=== PATIENT | female | born 1965 | race Caucasian/White ===

== ENCOUNTER 2024-04-21 15:36 | Outpatient (RCR) | payer BC, SELFPAY | END 2024-07-07 13:01 | disposition home or self-care (01) | PROVIDERS: PCP Internal Medicine; Visit Provider Orthopaedic Surgery | DX: M17.12 Unilateral primary osteoarthritis, left knee (principal); Z96.652 Presence of left artificial knee joint; Z51.89 Encounter for other specified aftercare | CPT/HCPCS: 97161 ==

== ENCOUNTER 2024-05-05 07:04 | Day surgery (SDC) | payer BC, SELFPAY ==
[2024-05-05] VITALS (25 sets, daily range): BP systolic 86–161; BP diastolic 47–80; PULSE 58–97; RESP 12–20; TEMP 35.6–36.6; O2SAT 93–99; BMI 52.4
[2024-05-05] MEDS: OXYCODONE (CR) 10 MG TAB.ER.12H PO (07:20)
[2024-05-05] MEDS: ACETAMINOPHEN 500 MG TABLET 1000 MG PO ×3 (07:20→20:08)
[2024-05-05] MEDS: CELECOXIB 200 MG CAPSULE PO (07:20)
[2024-05-05] MEDS: SODIUM CHLORIDE 0.9 % (FLUSH) 10 ML SYRINGE IVF (07:25)
[2024-05-05] MEDS: LACTATED RINGERS 1000 ML 1,000 ML 100 ML IV (08:55)
[2024-05-05] MEDS: MIDAZOLAM HCL 1 MG/ML inj IVP (09:10)
[2024-05-05] MEDS: fentaNYL 100 MCG/2 ML inj IVP (09:10)
--- NOTE | 2024-05-05 09:17 | SUR.PREOP ---
TIME?OUT:?3110 PT/Ehsan DELEON RN/Afshan VERDUGO MDA?VERIFICATION?OF?SURGICAL?SITE,?PROCEDURE,?AND?CONSENT OBTAINED?PRIOR?TO?INVASIVE?PROCEDURE.
[2024-05-05] MEDS: TRANEXAMIC ACID 100 MG/ML INJ 1000 MG IV (09:40)
[2024-05-05] MEDS: CEFAZOLIN 1 GM inj 3 GM IVP (09:45)
--- NOTE | 2024-05-05 09:56 | W.ANESCHARGE ---
Anesthesia Charges Start Date/Time Anesthesia Start Date: 05/05/24 Anesthesia Start Time: 09:21 Stop Date/Time Anesthesia Stop Date: 05/05/24 Anesthesia Stop Time: 12:12
--- NOTE | 2024-05-05 09:56 | W.PM.NB ---
Nerve Block Nerve Block Time Seen by Provider: 09:13 Date Seen: 05/05/24 Type of block requested by surgeon for post-operative analgesia: femoral Side: left Time out performed: Yes Verification of patient name: Yes Verification of date of : Yes Site marking: site marked Name of person performing procedure: Demetris Continuous monitoring Was continuous monitoring of O2 sat, B/P, alarm security or surveillance monitor, recorded every 15 minutes?: Yes Procedure Checklist: sterile prep, needles and gloves Ultrasound guided. Images saved: Yes Medications given in 5ml increments after negative aspiration: Marcaine %: 0.25 mL: 15 Needle gauge: 20 Precedex (mcg): 25 Patient tolerated procedure well: Yes Block Charges Block Charge (with Pro Fee): Femoral Nerve Use of Ultrasound Machine for Block: Yes- US Guidance/pain block
--- NOTE | 2024-05-05 09:56 | W.PM.NB ---
Nerve Block Nerve Block Time Seen by Provider: 09:13 Date Seen: 05/05/24 Type of block requested by surgeon for post-operative analgesia: geniculars Side: left Time out performed: Yes Verification of patient name: Yes Verification of date of : Yes Site marking: site marked Name of person performing procedure: Demetris Continuous monitoring Was continuous monitoring of O2 sat, B/P, assistant professor of religion, recorded every 15 minutes?: Yes Procedure Checklist: sterile prep, needles and gloves Medications given in 5ml increments after negative aspiration: Ropivicaine %: 0.5 mL: 9 Needle gauge: 25 Patient tolerated procedure well: Yes Block Charges Block Charge (with Pro Fee): Genicular Nerve Block Use of Ultrasound Machine for Block: No
--- NOTE | 2024-05-05 11:31 | CRLHL7_ITS ---
For Patients: As a result of the Cures Act, medical imaging exams and procedure reports are released immediately into your electronic medical record. You may view this report before your referring provider. If you have questions, please contact your health care provider. Indication: Total knee arthroplasty Technique: Two views of the left knee Comparison: Left knee radiographs 02/26/2024 Findings/impression : Interval postsurgical changes of left knee arthroplasty. The hardware is intact and without adjacent lucency. There is no acute fracture, dislocation or suspicious bony lesion. Air is present within the soft tissues compatible with very recent surgery. There are no soft tissue radiopaque foreign bodies. Dictated by Иван Leon MD @ 05/07/2024 2:25:50 PM (Electronically Signed)
--- NOTE | 2024-05-05 11:36 | PM.ORPRC ---
Procedure Note Date of procedure: 05/05/24 Procedure: PREOPERATIVE DIAGNOSIS: Left knee osteoarthritis, history of left knee patellofemoral arthroplasty POSTOPERATIVE DIAGNOSIS: Left knee osteoarthritis, history of left knee patellofemoral arthroplasty NAME OF OPERATION: Revision Left total knee arthroplasty SURGEON: Nikolay May MD LABOR AND DELIVERY REGISTERED NURSE: MARIELA Will ANESTHESIA: Spinal ESTIMATED BLOOD LOSS: 0 mL COMPLICATIONS: None SPECIMENS: None DRAINS: None PREOPERATIVE ANTIBIOTICS: Ancef 3 grams, antibiotic impregnated cement IMPLANTS: 1. J&J Attune revision CRS #6 posterior stabilized femur, with a 14 mm x 50 mm cemented stem 2. #6 revision CRS fixed-bearing tibia, with a 14 mm x 50 mm cemented stem 3. #6 posterior stabilized, 5 mm fixed-bearing polyethylene 4. 38 patella INDICATIONS: The patient is a 58-year-old with a longstanding history of severe, unrelenting left knee pain secondary to end-stage (grade IV) left knee osteoarthritis. She has previously undergone patellofemoral arthroplasty. Despite appropriate nonoperative management, including activity modification, anti-inflammatories, [id number] pain medication, bracing, physical therapy, and injections they continue to have pain and disability. Operative intervention was offered. The risks, benefits and expected outcomes were discussed in detail. These included but were not limited to: Infection, bleeding, injury to blood vessel or nerve, venous thromboembolism. All questions were answered to their satisfaction. Use of an preschool teacher assistant was necessary throughout the case for patient positioning and safety, soft tissue retraction, and closure. A modifier 22 should be added to this case. With the patient's history of previous surgery, body weight of 150 kg and a BMI of 53 kg the exposure was quite difficult. Because of the extreme obesity, stems were used to reduce the risk of aseptic loosening. These factors added time and cost to complete the case. PROCEDURE: Spinal anesthesia was administered. The patient was placed supine on the operating table. The preschool teacher assistant made sure the patient was positioned appropriately. The lower extremity was prepped and draped in the usual sterile fashion. The limb was exsanguinated with the Bola bandage. The pneumatic tourniquet was inflated to 300 mmHg. The previously placed anterior incision was utilized with the knee in flexion. Subcutaneous dissection was sharply taken through fascial layer #1. Full-thickness medial and lateral flaps were elevated. The preschool teacher assistant retracted the soft tissues and protected them throughout the case. A standard subvastus approach was made. The patella was subluxed. The infrapatellar fat pad was debrided. The menisci and cruciate ligaments were sharply d?brided. Marginal osteophytes were d?brided with the rongeur. The femoral component of the patellofemoral arthroplasty was de bonded from the femur with the oscillating saw under the component both medially and laterally. We then tapped the component off. This did not result in any significant bone loss. The drill was used to penetrate the femoral canal. The canal was aspirated and irrigated with pulse lavage. The intramedullary femoral guide was placed for a 5-degree valgus cut, removing 10 mm off the distal femur. The saw was used to make the cut. Whitesides line and the trans epicondylar axis were marked. The femoral sizing guide was pinned onto the distal femur. Three degrees of external rotation nicely parallels the transepicondylar axis. Pins were placed for posterior referencing. The four-in-one cutting guide was pinned onto the distal femur. The anterior, posterior, and chamfer cuts were made. The preschool teacher assistant protected the collateral ligaments. The revision trial was placed. The box cuts were made. The drill was used x2. The stemmed, boxed trial was placed and was an excellent fit. Attention was then turned to the proximal tibia. The extramedullary tibial guide was placed for a neutral varus/valgus cut with 5 degrees of posterior slope, removing 2 mm based off the medial tibial surface. The preschool teacher assistant protected the collateral ligaments and the neurovascular bundle. The saw was used to make the cut. Trial components were placed. The knee was nicely balanced in both flexion and extension. The trial components were removed. The tray was placed in appropriate rotation, parallel to our tibial cutting pins. It was pinned by the preschool teacher assistant and the drill x2 was used. The stemmed tibial trial was placed. The punch was used. The tray was removed. The punch was used again. Attention was then turned to the patella. For the scar surrounding the patellar component was aggressively debrided. We then used the oscillating saw to remove the patellar component. The cut was revised to a [place] patellar thickness of 12 mm. The polyethylene pegs were drilled out and removed with the curette. Drill holes were made by the preschool teacher assistant. The trial was placed and was an excellent fit. Cancellous surfaces were irrigated with pulse lavage and thoroughly dried by the preschool teacher assistant. We cemented the tibial component, then the femoral component. We impacted the 5 mm polyethylene onto the tibial tray. The knee was brought into full extension. We then cemented the patellar component. Excessive cement was removed. The cement was allowed to harden. The knee was taken through a range of motion and was found to be nicely balanced in both flexion and extension. The patella tracks centrally. The preschool teacher assistant did a three minute dilute Betadine solution soak. The preschool teacher assistant irrigated the wound with 3 liters of normal saline via pulse lavage. The preschool teacher assistant reapproximated the extensor mechanism with #1 Vicryl in an interrupted [id number] fashion. The preschool teacher assistant then ran the extensor mechanism with a #1 PDO Stratafix. The preschool teacher assistant closed the subcutaneous tissues with a 3-0 Stratafix and the skin with a running 3-0 Stratafix in a subcuticular fashion. Glue was used to seal the skin. The preschool teacher assistant placed a dry dressing. Sponge and needle counts were correct x2. The patient tolerated the procedure well. There were no apparent complications. They were carefully transferred to the hospital bed and taken to the postanesthesia care unit in satisfactory condition. PLAN: The patient will be mobilized with physical therapy. Aspirin will be used for DVT prophylaxis. They will be discharged to home once medically appropriate.
--- NOTE | 2024-05-05 12:16 | W.ANESCHARGE ---
Anesthesia Charges Start Date/Time Anesthesia Start Date: 05/05/24 Anesthesia Start Time: 09:21 Stop Date/Time Anesthesia Stop Date: 05/05/24 Anesthesia Stop Time: 12:12
[2024-05-05] MEDS: ePHEDrine sulfate 5 MG/ML inj IVP (12:18)
[2024-05-05] MEDS: LACTATED RINGERS 1000 ML 1,000 ML 75 ML IV (13:11)
[2024-05-05] MEDS: CEFAZOLIN 3 GM in 0.9 % SODIUM CHLORIDE Mini-bag 100 ML IVPB (16:29)
[2024-05-05] MEDS: OXYCODONE 5 MG TABLET PO ×2 (18:02→20:09)
[2024-05-05] MEDS: HYDROmorphone 0.5 mg/0.5 ml inj IVP (18:52)
--- NOTE | 2024-05-05 19:36 | PC.NURSE ---
End of Shift: Patient pleasant and cooperative, A&O. VSS, afebrile. Dressing on left knee C/D/I. Patient reports pain on her knee this shift, managed with PRN medication, see MAR. Denies N/V. Tolerating regular diet. SBA/A1 to bathroom with walker and gait belt.
[2024-05-05] MEDS: ASPIRIN 81 MG TABLET EC PO (20:09)
--- NOTE | 2024-05-05 21:24 | PM.IMCN1 ---
Date of Consult Patient: Other Consult date: 05/05/24 Requesting Physician: Orthopedics Primary Care Provider: Phylicia Raya PA-C Consult Narrative Narrative: Michelle Pham is a 58 year old female admitted to the hospital for redo of a left knee arthroplasty. Procedure is performed by Dr. May today. Previous procedure was about 13 years ago with unsatisfactory results. No immediate complications today. Dr. May has requested consultation for management of medical problems. She reports having some pain postoperatively that is fairly well managed. No other postoperative concerns. She reports preoperatively she was doing well without illness. No concerns on her preop physical. Review of Systems Narrative: No recent illness or injury. No previous problems with bleeding or clotting. She brought her CPAP to the hospital. [facility] Medical History (Updated 05/05/24 @ 21:33 by Alejandro Flores MD) Morbid obesity with BMI of 50.0-59.9, adult ?E66.01 - Morbid (severe) obesity due to excess calories (ICD-10) ?Z68.43 - Body mass index [BMI] 50.0-59.9, adult (ICD-10) Celiac sprue ?K90.0 - Celiac disease (ICD-10) Restless leg syndrome ?G25.81 - Restless legs syndrome (ICD-10) Migraine ?G43.909 - Migraine, unspecified, not intractable, without status migrainosus (ICD-10) Asthma ?J45.909 - Unspecified asthma, uncomplicated (ICD-10) Arthritis ?M19.90 - Unspecified osteoarthritis, unspecified site (ICD-10) Sleep apnea ?G47.30 - Sleep apnea, unspecified (ICD-10) Surgical History (Updated 05/05/24 @ 21:30 by Alejandro Flores MD) History of arthroplasty of left knee ?Z96.652 - Presence of left artificial knee joint (ICD-10) Hx of vitrectomy ?Z98.890 - Other specified postprocedural states (ICD-10) Hx of tonsillectomy ?Z90.89 - Acquired absence of other organs (ICD-10) Hx of cataract extraction ?Z98.49 - Cataract extraction status, unspecified eye (ICD-10) History of surgery of head ?Z98.890 - Other specified postprocedural states (ICD-10) History of carpal tunnel release ?Z98.890 - Other specified postprocedural states (ICD-10) History of arthroscopy of left knee (05/16/11) ?Z98.890 - Other specified postprocedural states (ICD-10) History of bursectomy (12/16/13) ?Z98.890 - Other specified postprocedural states (ICD-10) Family History Mother Cancer Social History (Updated 05/05/24 @ 21:31 by Alejandro Flores MD) Narrative: She lives in [place] with her partner, Carissa. She has 1 step to get into her home and then can live on 1 level. She does not smoke. She does not drink alcohol. Smoking Status: Never smoker How often do you have a drink containing alcohol: never AUDIT-C Alcohol total score: 0 Non-prescribed substance use: denies use Caffeine: Yes Meds Home Medications and Allergies Home Medications ?Medication ?Instructions ?Recorded ?Confirmed ?Type tiotropium bromide 1.25 2 puff inhalation DAILY 02/25/24 05/05/24 History mcg/actuation mist for inhalation (Spiriva Respimat) albuterol sulfate 90 mcg/actuation 2 inh inhalation Q4H PRN 05/05/24 05/05/24 History aerosol inhaler (Ventolin HFA) cholecalciferol (vitamin D3) 25 25 mcg PO DAILY 05/05/24 05/05/24 History mcg (1,000 unit) tablet famotidine 20 mg tablet 20 mg PO BID 05/05/24 05/05/24 History Allergies Allergy/AdvReac Type Severity Reaction Status Date / Time mold Allergy Unknown Verified 05/05/24 10:41 pollen extracts Allergy Unknown Verified 05/05/24 07:32 adhesive Allergy Verified 05/05/24 10:41 Exam Narrative: Exam Narrative: She is alert and appears in no distress. Very small airway. Neck is supple without mass or adenopathy. Respirations are clear to auscultation. Cardiovascular: S1, S2, regular rate and rhythm. No murmur gallop or rub. Abdomen: Bowel sounds active. Abdomen is soft without tenderness or mass. Extremities with mild edema bilaterally. Intact pedal pulses and sensation and strength in both feet and ankles. Const: Vital Signs, click to edit/add: Vital Signs - 24 hr 05/05/24 07:37 05/05/24 09:08 05/05/24 09:15 Temperature 97.9 F Pulse Rate 84 67 78 Pulse Rate [Pulse Oximeter] Respiratory Rate 20 20 20 Blood Pressure 133/64 161/65 H 125/65 Blood Pressure [Ri ght Arm] Pulse Oximetry 97 98 99 Oxygen Delivery Me thod Room Air Nasal Cannula Nasal Cannula Oxygen Flow Rate 3 3 05/05/24 12:07 05/05/24 12:15 05/05/24 12:20 Temperature 97.2 F L Pulse Rate 68 64 67 Pulse Rate [Pulse Oximeter] Respiratory Rate 16 18 16 Blood Pressure 90/47 L 86/55 L 95/52 L Blood Pressure [Ri ght Arm] Pulse Oximetry 94 95 93 Oxygen Delivery Me thod Room Air Room Air Room Air Oxygen Flow Rate 05/05/24 12:25 05/05/24 12:30 05/05/24 12:35 Temperature 97.1 F L Pulse Rate 67 63 68 Pulse Rate [Pulse Oximeter] Respiratory Rate 18 14 16 Blood Pressure 100/61 99/65 97/58 L Blood Pressure [Ri ght Arm] Pulse Oximetry 95 96 95 Oxygen Delivery Me thod Room Air Room Air Room Air Oxygen Flow Rate 05/05/24 12:41 05/05/24 12:50 05/05/24 12:50 Temperature 97.1 F L 96.4 F L 96.4 F L Pulse Rate 64 58 L 58 L Pulse Rate [Pulse Oximeter] Respiratory Rate 18 14 14 Blood Pressure 101/62 112/62 112/62 Blood Pressure [Ri ght Arm] Pulse Oximetry 96 97 97 Oxygen Delivery Me thod Room Air Room Air Room Air Oxygen Flow Rate 05/05/24 12:50 05/05/24 13:00 05/05/24 13:15 Temperature 96.4 F L 96.6 F L 96.4 F L Pulse Rate 62 65 Pulse Rate [Pulse Oximeter] 97 Respiratory Rate 14 14 14 Blood Pressure 106/64 107/64 Blood Pressure [Ri ght Arm] 112/62 Pulse Oximetry 97 93 96 Oxygen Delivery Me thod Room Air Room Air Room Air Oxygen Flow Rate 05/05/24 13:30 05/05/24 13:45 05/05/24 14:15 Temperature 96.4 F L 96.1 F L Pulse Rate 67 66 74 Pulse Rate [Pulse Oximeter] Respiratory Rate 14 14 16 Blood Pressure 107/61 97/65 109/60 Blood Pressure [Ri ght Arm] Pulse Oximetry 95 98 98 Oxygen Delivery Me thod Room Air Room Air Room Air Oxygen Flow Rate 05/05/24 14:45 05/05/24 15:45 05/05/24 16:45 Temperature 96.6 F L 96.9 F L Pulse Rate 82 74 75 Pulse Rate [Pulse Oximeter] Respiratory Rate 12 16 14 Blood Pressure 112/69 97/58 L 120/67 Blood Pressure [Ri ght Arm] Pulse Oximetry 95 98 98 Oxygen Delivery Me thod Room Air Room Air Room Air Oxygen Flow Rate 05/05/24 16:45 05/05/24 16:52 05/05/24 16:53 Temperature 96.5 F L Pulse Rate 75 Pulse Rate [Pulse Oximeter] 75 Respiratory Rate 14 14 14 Blood Pressure 120/67 Blood Pressure [Ri ght Arm] Pulse Oximetry 98 98 Oxygen Delivery Me thod Room Air Room Air Oxygen Flow Rate 05/05/24 17:45 05/05/24 18:45 05/05/24 19:00 Temperature 96.5 F L 97.0 F L 97.0 F L Pulse Rate 82 81 Pulse Rate [Pulse Oximeter] 84 Respiratory Rate 14 16 16 Blood Pressure 116/60 122/74 Blood Pressure [Ri ght Arm] 121/74 Pulse Oximetry 96 96 97 Oxygen Delivery Me thod Room Air Room Air Room Air Oxygen Flow Rate Documenting provider has reviewed patient's vital signs: yes Assessment and Plan Assessment and plan (1) History of arthroplasty of left knee: Problem comment: Revision of left knee arthroplasty on 05/05/[address] May Status: Acute (2) Sleep apnea: Problem comment: Brought home CPAP Status: Acute (3) Morbid obesity with BMI of 50.0-59.9, adult: Status: Acute (4) Asthma: Problem comment: Patient reports asthma has been well controlled recently. Status: Acute Plan She is admitted for surgery and postoperative care including pain management, physical therapy and monitoring for complications of surgery including complications related to sleep apnea and other medical problems. Anticipate discharge to home tomorrow. Monitor for respiratory problems. Total Time Spent Total Time Spent: Total time spent today is 40 minutes in evaluation management and discussing with patient and other providers postoperative care
[2024-05-06] MEDS: SODIUM CHLORIDE 0.9 % (FLUSH) 10 ML SYRINGE IVF (00:14)
[2024-05-06] MEDS: OXYCODONE 5 MG TABLET PO ×3 (00:14→08:01)
[2024-05-06] MEDS: CEFAZOLIN 3 GM in 0.9 % SODIUM CHLORIDE Mini-bag 100 ML IVPB (00:14)
[2024-05-06 02:29] VITALS: BP 109/62; PULSE 83; RESP 20; TEMP 36.6; O2SAT 92
[2024-05-06] MEDS: ACETAMINOPHEN 500 MG TABLET 1000 MG PO ×2 (02:30→08:01)
--- NOTE | 2024-05-06 05:43 | PC.NURSE ---
Pt alert and oriented. Pt had complaints ranging from 4-8; see EMAR for intervention. Pt up with a SBA with walker and gait belt. Pt?s dressing is dry and intact. 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
[2024-05-06 06:33] LABS: Basophils Absolute Auto 0.04 K/uL (0.00-0.30); Basophils Percent Auto 0.5 % (0.0-3.0); Eosinophils Absolute Auto 0.12 K/uL (0.00-0.50); Eosinophils Percent Auto 1.5 % (0.0-7.0); Hematocrit* 38.8 % (33.0-51.0); Hemoglobin* 12.1 gm/dL (12.0-16.0); Immature Granulocytes Abs Auto 0.02 K/uL (0.00-0.30); Immature Granulocytes Pct Auto 0.2 %; Lymphocytes Percent Auto 18.9 % (20-44); Mean Corpuscular HGB Conc 31 gm/dL (32-36); Mean Corpuscular Hemoglobin 29 pg (26-34); Mean Corpuscular Volume 93 fL (80-100); Monocytes Percent Auto 14.5 % (0.0-11.0); Neutrophils Absolute Auto 5.18 K/uL (1.7-7.0); Neutrophils Percent Auto 64.4 % (42.0-72.0); Platelet Count* 179 K/uL (140-440); RDW Coefficient of Variation % 13.4 % (11.5-15.5); Red Blood Count* 4.16 m/uL (4.00-5.20); White Blood Count* 8.05 K/uL (4.50-11.00)
[2024-05-06 06:35] LABS: Slide Review Reflex No
[2024-05-06 06:45] LABS: Sodium* 136 mmol/L (135-149)
[2024-05-06 06:48] LABS: Est. Creatinine Clearance* 56.01; Estimated Glomerular Filt Rate 64 ml/min
[2024-05-06 06:49] LABS: Blood Urea Nitrogen* 18 mg/dL (7-30)
[2024-05-06 06:53] LABS: INR 1.05 (0.91-1.10); Prothrombin Time 14.4 Seconds
[2024-05-06 07:00] VITALS: BP 134/77; PULSE 101; RESP 20; TEMP 37.1; O2SAT 97
[2024-05-06] MEDS: SENNOSIDES 1 TAB TABLET 2 TAB PO (08:00)
[2024-05-06] MEDS: ASPIRIN 81 MG TABLET EC PO (08:01)
--- NOTE | 2024-05-06 10:55 | PC.NURSE ---
Nursing discharge note: Pt has been A&O, afebrile and VSS today. She rates pain at 6/10 prior to PRN pain meds and 4/10 at rest. PRN oxycodone last given @0800. Pt denies nausea, dizziness or CP. PIV in right hand discontinued, catheter intact. Pt has kept ice on/off left knee. Dressing remains C/D/I with swelling around. Pt has been up ad zena this morning, walking the halls. Discharge education was reviewed with both patient and her family members who all verbalized understanding. She discharged home accompanied by family & MARINA via W/C @ 0066.
--- NOTE | 2024-05-06 11:49 | PM.ORPN ---
Subjective Subjective Time Seen by Provider: 08:00 Date Seen: 05/06/24 Principal diagnosis: Status post left knee replacement Interval history: Michelle is comfortable. She has been ambulating well. She is looking forward to going home. Ortho Exam Narrative Exam Narrative: Alert and oriented x3. Patient is in no acute distress. Converses without labored breathing. Hearing is grossly intact. Ambulates with a walker. Examination of left knee shows the dressing is intact. Minimal knee edema. CMS intact left lower extremity. Calves are soft and nontender. She is able to straight leg raise. Seen is intact without rash seen or erythema or blistering. She has an adhesive allergy Const Vital Signs, click to edit/add: Vital Signs - 24 hr 05/05/24 12:07 05/05/24 12:15 05/05/24 12:20 Temperature 97.2 F L Pulse Rate 68 64 67 Pulse Rate [Pulse Oximeter] Respiratory Rate 16 18 16 Blood Pressure 90/47 L 86/55 L 95/52 L Blood Pressure [Right Arm] Pulse Oximetry 94 95 93 Oxygen Delivery Method Room Air Room Air Room Air Oxygen Flow Rate 05/05/24 12:25 05/05/24 12:30 05/05/24 12:35 Temperature 97.1 F L Pulse Rate 67 63 68 Pulse Rate [Pulse Oximeter] Respiratory Rate 18 14 16 Blood Pressure 100/61 99/65 97/58 L Blood Pressure [Right Arm] Pulse Oximetry 95 96 95 Oxygen Delivery Method Room Air Room Air Room Air Oxygen Flow Rate 05/05/24 12:41 05/05/24 12:50 05/05/24 12:50 Temperature 97.1 F L 96.4 F L 96.4 F L Pulse Rate 64 58 L 58 L Pulse Rate [Pulse Oximeter] Respiratory Rate 18 14 14 Blood Pressure 101/62 112/62 112/62 Blood Pressure [Right Arm] Pulse Oximetry 96 97 97 Oxygen Delivery Method Room Air Room Air Room Air Oxygen Flow Rate 05/05/24 12:50 05/05/24 13:00 05/05/24 13:15 Temperature 96.4 F L 96.6 F L 96.4 F L Pulse Rate 62 65 Pulse Rate [Pulse Oximeter] 97 Respiratory Rate 14 14 14 Blood Pressure 106/64 107/64 Blood Pressure [Right Arm] 112/62 Pulse Oximetry 97 93 96 Oxygen Delivery Method Room Air Room Air Room Air Oxygen Flow Rate 05/05/24 13:30 05/05/24 13:45 05/05/24 14:15 Temperature 96.4 F L 96.1 F L Pulse Rate 67 66 74 Pulse Rate [Pulse Oximeter] Respiratory Rate 14 14 16 Blood Pressure 107/61 97/65 109/60 Blood Pressure [Right Arm] Pulse Oximetry 95 98 98 Oxygen Delivery Method Room Air Room Air Room Air Oxygen Flow Rate 05/05/24 14:45 05/05/24 15:45 05/05/24 16:45 Temperature 96.6 F L 96.9 F L Pulse Rate 82 74 75 Pulse Rate [Pulse Oximeter] Respiratory Rate 12 16 14 Blood Pressure 112/69 97/58 L 120/67 Blood Pressure [Right Arm] Pulse Oximetry 95 98 98 Oxygen Delivery Method Room Air Room Air Room Air Oxygen Flow Rate 05/05/24 16:45 05/05/24 16:52 05/05/24 16:53 Temperature 96.5 F L Pulse Rate 75 Pulse Rate [Pulse Oximeter] 75 Respiratory Rate 14 14 14 Blood Pressure 120/67 Blood Pressure [Right Arm] Pulse Oximetry 98 98 Oxygen Delivery Method Room Air Room Air Oxygen Flow Rate 05/05/24 17:45 05/05/24 18:45 05/05/24 19:00 Temperature 96.5 F L 97.0 F L 97.0 F L Pulse Rate 82 81 Pulse Rate [Pulse Oximeter] 84 Respiratory Rate 14 16 16 Blood Pressure 116/60 122/74 Blood Pressure [Right Arm] 121/74 Pulse Oximetry 96 96 97 Oxygen Delivery Method Room Air Room Air Room Air Oxygen Flow Rate 05/05/24 23:27 05/05/24 23:27 05/05/24 23:27 Temperature 97.1 F L Pulse Rate Pulse Rate [Pulse Oximeter] 94 94 Respiratory Rate 18 18 Blood Pressure Blood Pressure [Right Arm] 104/80 Pulse Oximetry 98 98 Oxygen Delivery Method Room Air Room Air Oxygen Flow Rate 0 05/06/24 02:29 05/06/24 07:00 05/06/24 07:00 Temperature 97.9 F Pulse Rate Pulse Rate [Pulse Oximeter] 83 101 H Respiratory Rate 20 20 20 Blood Pressure Blood Pressure [Right Arm] 109/62 Pulse Oximetry 92 97 Oxygen Delivery Method Room Air Room Air Oxygen Flow Rate 05/06/24 07:00 Temperature 98.8 F Pulse Rate Pulse Rate [Pulse Oximeter] 101 H Respiratory Rate 20 Blood Pressure Blood Pressure [Right Arm] 134/77 Pulse Oximetry 97 Oxygen Delivery Method Room Air Oxygen Flow Rate Assessment and Plan Assessment and plan (1) History of arthroplasty of left knee: Problem details: Conversion of left knee patellofemoral arthroplasty to total knee replacement on 05/05/[address] May Status: Acute Assessment and Plan: Plan for discharge is today to home if they meet discharge criteria. DVT prophylaxis includes aspirin 81 mg twice daily x1 month, Compression stockings as needed for swelling. Frequent ambulation, every hour throughout the day. Remove dressing in 1 week. Observe wound and phone Orthopedics with any questions or concerns Return to clinic in 1 week for a wound check Return to clinic in 6 weeks with surgeon Minimize narcotic use. Wean off and discontinue soon as possible. Activities as tolerated. No strenuous activity. Outpatient physical therapy as scheduled. Ice and elevate the operative extremity. No restriction on ice. Michelle has an allergy to adhesive. I have asked her to remove the dressing if she has any skin problems with her dressing. Surgical glue covers the wound and she can shower with or without the dressing.
== END 2024-05-06 10:30 | disposition home or self-care (01) ==
LOC: OR 07:05 → MEDSURG 07:11
PROVIDERS: PCP Internal Medicine; Visit Provider Orthopaedic Surgery
PROC: (CPT 27447; principal; 2024-05-05 09:15)
DX: M17.12 Unilateral primary osteoarthritis, left knee (principal); G89.18 Other acute postprocedural pain; Z96.652 Presence of left artificial knee joint; E66.01 Morbid (severe) obesity due to excess calories; Z68.43 Body mass index [BMI] 50.0-59.9, adult; G25.81 Restless legs syndrome; J45.909 Unspecified asthma, uncomplicated
CPT/HCPCS: 27487; 01402; 36415; 64447; 64454; 73560; 76942; 82565; 84132; 84295; 84520; 85025; 85610; 97110; 97116; 97162; 97165; 97530; 97535; A9270; C1776; J0690; J1171; J2250; J2405; J2704; J3010; J3490; J7120

== ENCOUNTER 2025-01-21 06:05 | Day surgery (SDC) | payer BC, SELFPAY ==
[2025-01-21] VITALS (10 sets, daily range): BP systolic 110–136; BP diastolic 57–87; PULSE 66–79; RESP 12–18; TEMP 36.4–36.7; O2SAT 95–99; BMI 54.9
[2025-01-21] MEDS: LIDOCAINE 1%-EPI 1:100,000 20 ML INFILTRATI (07:00)
[2025-01-21] MEDS: BUPIVACAINE 0.5 %/EPI 1:200K INJECTION (07:00)
[2025-01-21] MEDS: ETHYL CHLORIDE 1 APPLICATION 1 APPLIC TOPICAL (07:00)
[2025-01-21] MEDS: [UNRECOGNIZED DRUG - OTHER] INJECTION (07:40)
--- NOTE | 2025-01-21 07:49 | PM.ORPRC ---
Procedure Note Date of procedure: 01/21/25 Procedure: Preop diagnosis: Left upper extremity carpal tunnel syndrome Postop diagnosis: Left upper extremity carpal tunnel syndrome Procedure: Left upper extremity carpal tunnel release Anesthesia: Local Surgeon: Nikolay May MD office manager executive assistant: MARIELA Will EBL: 2 mL Complications: None Specimens: None Drains: None Indications: The patient has a history of left upper extremity carpal tunnel syndrome symptoms. Despite appropriate nonoperative management consisting of nighttime bracing and occupational therapy they continue to have symptoms. Operative intervention was recommended. The risks, benefits alternatives and expected outcomes were discussed in detail. These included but were not limited to: Infection, bleeding, injury to blood vessel or nerve, venous thromboembolism. All questions were answered to their satisfaction. The patient was placed supine on the operating room table. Local anesthesia was established with 0.5% Marcaine with epinephrine and 2% lidocaine with epinephrine. The hand was prepped and draped in usual sterile fashion. A longitudinal incision was made centered over the radial border of the ring finger at the base of the palm. Subcutaneous dissection was sharply taken through the palmar fascia and the palmaris brevis to the transverse carpal ligament. The ligament was divided in line with the incision. Proximal and distal dissection was carried with tenotomy and Metzenbaum scissors for a wide decompression of the carpal tunnel. The wound was closed with a 3-0 nylon. A bulky dry dressing was applied, sponge and needle counts were correct x 2. The patient tolerated the procedure well, there were no apparent complications. They were sent to same day surgery in satisfactory condition. Plan: Use of the hand as tolerates. Discontinue the intraoperative dressing on postoperative day 3 and may get the wound wet as tolerates. Follow up in the office in 2 weeks for a wound check and suture removal.
== END 2025-01-21 08:22 | disposition home or self-care (01) ==
LOC: OR 06:06
PROVIDERS: PCP Internal Medicine; Visit Provider Orthopaedic Surgery
PROC: (CPT 64721; principal; 2025-01-21 07:15)
DX: G56.02 Carpal tunnel syndrome, left upper limb (principal)
CPT/HCPCS: 64721; J3490